=== PATIENT | male | born 1970 | race Caucasian/White ===

== ENCOUNTER 2020-12-06 14:43 | Emergency (ER) | payer OTHER ==
[2020-12-06] MEDS ORDERED: IBUPROFEN800 MG PO (16:44)
[2020-12-06] MEDS ORDERED: CYCLOBENZAPRINE10 MG PO (16:44)
== END 2020-12-06 16:53 | disposition home or self-care (01) ==
LOC: ER1 14:43
DX: S30.0XXA Contusion of lower back and pelvis, initial encounter (principal); F17.210 Nicotine dependence, cigarettes, uncomplicated; W00.0XXA Fall on same level due to ice and snow, initial encounter; Y92.009 Unspecified place in unspecified non-institutional (private) residence as the place of occurrence of the external cause
CPT/HCPCS: 72070; 72100; 72170; 96372; 99283; J1885

== ENCOUNTER 2022-05-11 11:31 | Observation (INO) | payer OTHER ==
[~2022-05-11] VITALS: Ht 185.4 cm; Wt 84.9 kg
[~2022-05-11 11:31] MED LIST: CYCLOBENZAPRINE10 MG PO; IBUPROFEN800 MG PO
[2022-05-11 13:10] LABS: HEMOGLOBIN 14.6 gm/dl (14.0-17.5); RED BLOOD COUNT 4.93 M/UL (4.20-5.50); WHITE BLOOD COUNT 7.3 K/UL (4.5-11.0)
[2022-05-11 13:29] LABS: BUN/CREATININE RATIO 13 (0-10)
[2022-05-11] MEDS ORDERED: OMEPRAZOLE20 MG PO (15:18)
[2022-05-11] MEDS ORDERED: PRAVASTATIN SOD10 MG PO (15:18)
[2022-05-12 02:27] LABS: HEMOGLOBIN 13.7 gm/dl (14.0-17.5); RED BLOOD COUNT 4.73 M/UL (4.20-5.50); WHITE BLOOD COUNT 5.6 K/UL (4.5-11.0)
[2022-05-12 02:46] LABS: BUN/CREATININE RATIO 14 (0-10)
[2022-05-12] MEDS ORDERED: ASPIRIN EC81 MG PO (11:05)
[2022-05-13] MEDS ORDERED: CLOPIDOGREL75 MG PO (10:59)
[2022-05-13] MEDS ORDERED: NICOTINE PATCH1 EAC1 TD (11:03)
== END 2022-05-13 17:40 | disposition home or self-care (01) ==
LOC: ER1 11:31 → MED SURG 4 14:50 → CDU 14:50 → MED SURG 4 14:50
PROVIDERS: Physician Assistant; Physician Assistant Medical; ADMIT Internal Medicine
DX: G45.9 Transient cerebral ischemic attack, unspecified (principal); E78.5 Hyperlipidemia, unspecified; F17.210 Nicotine dependence, cigarettes, uncomplicated; I08.3 Combined rheumatic disorders of mitral, aortic and tricuspid valves; K21.9 Gastro-esophageal reflux disease without esophagitis; Z79.899 Other long term (current) drug therapy
CPT/HCPCS: ECHO; 36415; 70450; 70496; 70498; 70551; 80048; 80053; 80061; 82550; 82553; 83735; 84484; 85025; 85027; 85610; 85652; 85730; 86140; 93005; 93306; 93880; 96374; 96376; 99285; G0378; J2405; Q9967